=== PATIENT | female | born 1970 | race African-American/Black ===

== ENCOUNTER 2020-01-29 22:29 | Observation (INO) ==
[2020-01-29] MEDS ORDERED: ONDANSETRON 4 MG/2 ML VIAL IV STA (22:53)
[2020-01-29] MEDS ORDERED: MORPHINE 4 MG/1 ML VIAL IV STA (22:53)
[2020-01-29] MEDS ORDERED: ASPIRIN 325 MG TABLET PO STA (22:53)
[2020-01-29] MEDS ORDERED: NITROGLYCERIN 2% OINT 1 INCH/GM PACK TOP STA (22:53)
[2020-01-29 23:36] LABS: Basophils # 0.1 10*3/uL (0.0-0.2); Basophils % 0.9 % (0.0-0.8); Eosinophils # 0.1 10*3/uL (0.0-0.87); Eosinophils % 0.7 % (0.00-10.9); Immature Granulocytes % 0.1 %; Immature Granulocytes Absolute 0.01 #; Lymphocytes # 2.9 10*3/uL (1.4-4.0); Lymphocytes % 38.2 % (21.3-54.2); Mean Corpuscular HGB Conc 29.3 GM/DL (32-36); Mean Corpuscular Volume 83.8 FL (87-102); Mean Platelet Volume 9.6 FL (9.6-12.0); Monocytes % 11.6 % (1.7-12.7); Neutrophils % 48.5 % (38.7-73.9); Platelet Count 229 T/CUMM (130-400); Red Blood Count 4.56 MC/CUMM (3.8-5.5); Red Cell Distribution Width 17.2 % (9.3-17.3); White Blood Count 7.7 T/CUMM (4-12)
[2020-01-29 23:44] LABS: Hemoglobin 11.2 GM/DL (12.0-16.0)
[2020-01-29 23:46] LABS: PT Patient Result 11.2 SECS (9.8-11.9)
[2020-01-29 23:54] LABS: Albumin 3.7 G/DL (3.4-5.0); Bilirubin,Total 0.5 MG/DL (0.2-1.0); Calcium 8.6 MG/DL (8.5-10.1); Osmolality,Calculated 274.7 MOS/KG (273-304); Total Protein 7.5 G/DL (6.4-8.3)
[2020-01-30] MEDS ORDERED: ACETAMINOPHEN 325 MG TABLET PO PRN (01:10)
[2020-01-30] MEDS ORDERED: DEXTROSE 50% 25 GM/50 ML VIAL IV PRN (01:10)
[2020-01-30] MEDS ORDERED: hydrALAZINE 20 MG/1 ML VIAL IV PRN (01:10)
[2020-01-30] MEDS ORDERED: GLUCAGON 1 MG VIAL IM PRN (01:10)
[2020-01-30] MEDS ORDERED: ONDANSETRON 4 MG/2 ML VIAL IV PRN (01:10)
[2020-01-30] MEDS: METOPROLOL TARTRATE 25 MG TABLET PO STA ×2 (01:21→01:35)
[2020-01-30] MEDS ORDERED: METOPROLOL TARTRATE 25 MG TABLET ONE (01:31)
[2020-01-30] MEDS ORDERED: NITROGLYCERIN 0.1 MG/HR PATCH TRANSDERM PRN (01:59)
[2020-01-30 04:27] LABS: Basophils # 0.1 10*3/uL (0.0-0.2); Basophils % 0.9 % (0.0-0.8); Eosinophils % 0.4 % (0.00-10.9); Hemoglobin 10.2 GM/DL (12.0-16.0); Immature Granulocytes % 0.3 %; Immature Granulocytes Absolute 0.02 #; Lymphocytes # 2.6 10*3/uL (1.4-4.0); Mean Corpuscular HGB Conc 28.8 GM/DL (32-36); Mean Corpuscular Volume 84.7 FL (87-102); Mean Platelet Volume 10.3 FL (9.6-12.0); Monocytes % 8.5 % (1.7-12.7); Neutrophils % 51.9 % (38.7-73.9); Platelet Count 183 T/CUMM (130-400); Red Blood Count 4.18 MC/CUMM (3.8-5.5); Red Cell Distribution Width 17.2 % (9.3-17.3); White Blood Count 6.9 T/CUMM (4-12)
[2020-01-30 04:42] LABS: Hematocrit 34.3 VOL% (35.7-47.0)
[2020-01-30 04:54] LABS: Hypochromasia 2+; Microcytosis 1+; Ovalocytes Slight
[2020-01-30 04:55] LABS: Albumin 2.7 G/DL (3.4-5.0); Bilirubin,Total 0.5 MG/DL (0.2-1.0); Calcium 7.2 MG/DL (8.5-10.1); Osmolality,Calculated 277.4 MOS/KG (273-304); Platelet Estimate Adequate; Risk Ratio 3.45; Thyroid Stimulating Hormone 3.59 uIU/ml (0.358-3.74); Total Protein 5.8 G/DL (6.4-8.3)
[2020-01-30] MEDS: ASPIRIN EC 81 MG TABLET PO SCH (09:51)
[2020-01-30] MEDS: PANTOPRAZOLE 40 MG TABLET PO SCH (09:51)
[2020-01-30] MEDS: SERTRALINE 25 MG TABLET PO SCH ×2 (13:36→20:50)
[2020-01-30] MEDS ORDERED: KETOROLAC 30 MG/1 ML VIAL IV ONE (14:31)
[2020-01-30] MEDS: GABAPENTIN 100 MG CAPSULE PO SCH ×2 (14:50→20:50)
[2020-01-30] MEDS ORDERED: ENOXAPARIN 40 MG/0.4 ML SYRINGE SUBCUT SCH (15:00)
[2020-01-30] MEDS: POTASSIUM CHLORIDE 20 MEQ TABLET PO PRN ×2 (20:50→23:23)
[2020-01-30] MEDS ORDERED: ATORVASTATIN 20 MG TABLET PO SCH (21:00)
[2020-01-31 08:06] LABS: Basophils % 0.8 % (0.0-0.8); Eosinophils # 0.1 10*3/uL (0.0-0.87); Eosinophils % 1.1 % (0.00-10.9); Hematocrit 36.4 VOL% (35.7-47.0); Hemoglobin 10.9 GM/DL (12.0-16.0); Immature Granulocytes % 0.4 %; Immature Granulocytes Absolute 0.02 #; Lymphocytes # 1.8 10*3/uL (1.4-4.0); Lymphocytes % 34.5 % (21.3-54.2); Mean Corpuscular HGB Conc 29.9 GM/DL (32-36); Mean Corpuscular Volume 82.2 FL (87-102); Mean Platelet Volume 9.7 FL (9.6-12.0); Monocytes % 9.8 % (1.7-12.7); Neutrophils % 53.4 % (38.7-73.9); Platelet Count 207 T/CUMM (130-400); Red Blood Count 4.43 MC/CUMM (3.8-5.5); Red Cell Distribution Width 17.1 % (9.3-17.3); White Blood Count 5.3 T/CUMM (4-12)
[2020-01-31 08:34] VITALS: BP 136/87
[2020-01-31 08:36] LABS: Calcium 8.6 MG/DL (8.5-10.1); Osmolality,Calculated 276.7 MOS/KG (273-304)
[2020-01-31] MEDS: PANTOPRAZOLE 40 MG TABLET PO SCH (09:09)
[2020-01-31] MEDS: ASPIRIN EC 81 MG TABLET PO SCH (09:09)
[2020-01-31] MEDS: GABAPENTIN 100 MG CAPSULE PO SCH (09:09)
== END 2020-01-31 12:11 | disposition home or self-care (01) ==
LOC: N.ED 22:29 → INTOOBSV 01-30 01:10 → N.EDINP 01-30 01:10 → N.TELES 01-30 13:03
PROVIDERS: ADMIT Family Medicine; ATTEND Family Medicine